=== PATIENT | male | born 1965 | race Hispanic/Latino ===

== ENCOUNTER 2019-07-18 11:32 | Emergency (ER) | payer BC ==
[2019-07-18 12:32] LABS: Basophils % 0.6 % (0-1.3); Hematocrit 46.1 % (39.6-49.0); Lymphocytes % 25.4 % (15.3-44.8); Protime INR 0.97; RBC Red Blood Cell Count 5.17 M/uL (4.33-5.43)
--- NOTE | 2019-07-18 12:50 | RAD REPORT ---
EXAM DESCRIPTION: CT - Head Brain Wo Cont - 07/18/2019 12:24 pm CLINICAL HISTORY: Headache COMPARISON: 2011 TECHNIQUE: Computed axial tomography of the head was obtained. IV contrast was not requested. All CT scans are performed using dose optimization technique as appropriate and may include automated exposure control or mA/KV adjustment according to patient size. FINDINGS: An intracranial bleed is not seen . The ventricles are normal in caliber. No extra-axial fluid collection is noted. Fluid within the sinuses/ mastoids is not seen. IMPRESSION: No acute intracranial abnormality is seen. If patient's symptoms persist MRI of the bra in would be recommended.
--- NOTE | 2019-07-18 13:06 | RAD REPORT ---
EXAM DESCRIPTION: - CP - 07/18/2019 1:00 pm CLINICAL HISTORY: headache, dizziness Headache, drowsiness, TIA COMPARISON: No comparisons TECHNIQUE: Real-time sonographic evaluation of both carotid systems was performed. Doppler interroga tion was performed with waveform tracing bilaterally. FINDINGS: Normal high resistance waveforms are noted in both external carotid arteries. The common c arotid arteries and internal carotid arteries show normal low resistance waveforms. No significant plaque formation is seen. Peak systolic and end diastolic velocity values and the ICA/ CCA ratios are in the non-hemodynamically significant range. Antegrade flow seen in both vertebral arteries. IMPRESSION: No significant atherosclerotic changes noted. No evidence of a hemodynamically significant stenosis.
[2019-07-18] MEDS ORDERED: NA CHLORIDE 0.9% 1,000 ML ONE (13:28)
[2019-07-18 13:38] LABS: BUN Blood Urea Nitrogen 12 mg/dL (7-18); Bicarbonate 25 mmol/L (21-32); Magnesium 2.1 mg/dL (1.8-2.4); Potassium 4.1 mmol/L (3.5-5.1); Sodium Level 136 mmol/L (136-145); Troponin (Emerg Dept Use Only) < 0.02 ng/mL (0.0-0.045)
[2019-07-18 13:39] LABS: Glucose Level 537 mg/dL (74-106)
--- NOTE | 2019-07-18 14:08 | RAD REPORT ---
EXAM DESCRIPTION: MRI - Brain Wo Cont - 07/18/2019 1:57 pm CLINICAL HISTORY: Dizziness;Headache Headache, drowsiness, TIA COMPARISON: Head Brain Wo Cont dated 07/18/2019; Carotid Artery Bilateral dated 07/18/2019 TECHNIQUE: Multi-sequence, multiplanar MR imaging of the brain was performed without contrast. FINDINGS: No intracranial hemorrhage, hydrocephalus or extra-axial fluid collections. No edema or sh ift of midline structures. No findings to suspect brain mass. DWI is negative for acute CVA. Midline structures are normally formed. Mastoid air cells and paranasal sinuses are clear. IMPRESSION: No acute or pathologic intracranial abnormalities.
[2019-07-18] MEDS ORDERED: INSULIN -REGULAR HUMAN 50 UNIT/0.5 ML ML ONE (14:40)
--- NOTE | 2019-07-18 15:08 | ER ---
Nurse's Notes [facility] Name: Tamir Basurto Age: 53 yrs Sex: Male : 1965 Arrival Date: 07/18/2019 Time: 11:33 Bed 17 Private MD: Diagnosis: Dizziness and giddiness;Hyperglycemia, unspecified;Dehydration Presentation: 07/17 11:58 Chief complaint: Patient states: C-SPINE TENDERNESS x1 MONTH, SUBJECTIVE SLURRED SPEECH bp AND DIZZINESS TODAY, NOW RESOLVED. Coronavirus screen: Proceed with normal triage. Ebola Screen: No symptoms or risks identified at this time. Initial Sepsis Screen: Does the patient meet any 2 criteria? HR > 90 bpm. No. Patient's initial sepsis screen is negative. Does the patient have a suspected source of infection? No. Patient's initial sepsis screen is negative. Risk Assessment: Do you want to hurt yourself or someone else? Patient reports no desire to harm self or others. Onset of symptoms is unknown. 11:58 Method Of Arrival: Ambulatory bp 11:58 Acuity: CHARITO 3 bp Triage Assessment: 12:03 General: Appears in no apparent distress. comfortable, Behavior is cooperative, bp appropriate for age, anxious. Pain: Complains of pain in back of neck. EENT: No deficits noted. Neuro: Level of Consciousness is awake, alert, obeys commands, Oriented to person, place, time, situation, Appropriate for age Mammography Technologist are equal bilaterally Moves all extremities. Full function Speech is normal, Reports dizziness. Cardiovascular: No deficits noted. Respiratory: No deficits noted. GI: No signs and/or symptoms were reported involving the gastrointestinal system. : No signs and/or symptoms were reported regarding the genitourinary system. Derm: No deficits noted. Musculoskeletal: No deficits noted. Historical: - Allergies: 12:03 No Known Allergies; bp - Home Meds: 12:03 Metformin Oral [Active]; bp - PMHx: 12:03 Diabetes - NIDDM; Hypertension; bp - Immunization history:: Adult Immunizations up to date. - Social history:: Smoking status: Patient denies any tobacco usage or history of. - Family history:: not pertinent. - Hospitalizations: : No recent hospitalization is reported. Screenin:04 Abuse screen: Denies threats or abuse. Denies injuries from another. Nutritional bp screening: No deficits noted. Tuberculosis screening: No symptoms or risk factors identified. Fall Risk None identified. Assessment: 12:04 General: SEE TRIAGE NOTE. bp 12:20 Reassessment: Pt to CT. ca1 12:48 Reassessment: Patient appears in no apparent distress at this time. Patient and/or ca1 family updated on plan of care and expected duration. Pain level reassessed. Patient is alert, oriented x 3, equal unlabored respirations, skin warm/dry/pink. 12:53 Reassessment: PT RETURNED FROM RADIOLOGY. ALL CURRENT STUDIES IN PROCESS. bp 13:37 Reassessment: PT to MRI. ca1 13:40 Reassessment: CRITICAL LAB: GLUCOSE 537. Notified Dr. Ray. ca1 14:05 Reassessment: PT RETURNED FROM MRI. bp 15:15 Reassessment: PT D/C HOME AMBULATORY, DX WITH DIZZINESS, DEHYDRATION AND HYPERGLYCEMIA. bp Vital Signs: 11:58 BP 115 / 97; Pulse 100; Resp 17; Temp 98.5; Pulse Ox 98% ; Weight 98.88 kg; Height 5 bp ft. 11 in. (180.34 cm); 12:52 BP 128 / 70; Pulse 91; Resp 21; Pulse Ox 97% ; bp 14:02 BP 126 / 88; Pulse 80; Resp 20; Pulse Ox 97% ; bp 15:15 BP 118 / 81; Pulse 72; Resp 16; Pulse Ox 97% ; bp 11:58 Body Mass Index 30.40 (98.88 kg, 180.34 cm) bp ED Course: 11:33 Patient arrived in ED. as 11:49 Eagle Ray MD is Attending Physician. rn 11:52 Marissa Cespedes, GREG is Primary Nurse. ca1 12:00 Triage completed. bp 12:03 Arm band placed on. bp 12:04 Patient has correct armband on for positive identification. Bed in low position. Call bp light in reach. Side rails up X2. 12:18 No provider procedures requiring assistance completed. Initial lab(s) drawn, by co, ca1 sent to lab. Inserted saline lock: 20 gauge in right forearm, using aseptic technique. Blood collected. 12:25 CT Head Brain wo Cont In Process Unspecified. EDMS 12:48 EKG done. ca1 13:00 Carotid Artery Bilateral US In Process Unspecified. EDMS 13:48 MRI - Brain Wo Cont In Process Unspecified. EDMS 13:49 Lyndon Noel, RN is Primary Nurse. bp 15:16 IV discontinued, intact, bleeding controlled, No redness/swelling at site. Pressure bp dressing applied. Administered Medications: 13:25 Drug: NS 0.9% 1000 ml Route: IV; Rate: 1000 ml; Site: right forearm; bp 15:17 Follow up: IV Status: Completed infusion; IV Intake: 1000ml bp 14:30 Drug: Insulin Regular Human 10 units {Co-Signature: ca1 (Marissa Cespedes RN).} Route: bp Sub-Q; Site: right upper arm; 15:15 Follow up: Response: No adverse reaction bp Intake: 15:17 IV: 1000ml; Total: 1000ml. bp Outcome: 15:07 Discharge ordered by . rn 15:16 Discharged to home ambulatory. bp 15:16 Condition: stable 15:16 Discharge instructions given to patient, Instructed on discharge instructions, follow up and referral plans. Demonstrated understanding of instructions, follow-up care. 15:24 Patient left the ED. bp Signatures: Dispatcher [employer] Prieto Roman, MD MD rn Peltier, Brian, RN RN bp Marissa Cespedes RN RN ca1 Marissa Cespedes RN ca1
--- NOTE | 2019-07-18 15:08 | EDPHYS ---
Physician Documentation [facility] Name: Tamir Basurto Age: 53 yrs Sex: Male : 1965 Arrival Date: 07/18/2019 Time: 11:33 Bed 17 Private MD: ED Physician Eagle Ray HPI: 07/17 12:28 This 53 yrs old Male presents to ER via Ambulatory with complaints of rn Dizziness, headache. 12:28 The patient presents with feeling off balance. Onset: The symptoms/episode rn began/occurred. 12:30 Onset: The symptoms/episode began/occurred yesterday. Context:. Modifying factors: The rn symptoms are alleviated by nothing, the symptoms are aggravated by movement of head, standing up. Severity of symptoms: At their worst the symptoms were moderate in the emergency department the symptoms have improved. The patient has not experienced similar symptoms in the past. Reports since yesterday noticed dizziness, feeling off balance, and slight slurred speech, reports 1 month of occipital headache, no trauma. 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 No focal weakness or numbness. Reports still feels like slurred speech is present to mild extent. . Historical: - Allergies: 12:03 No Known Allergies; bp - Home Meds: 12:03 Metformin Oral [Active]; bp - PMHx: 12:03 Diabetes - NIDDM; Hypertension; bp - Immunization history:: Adult Immunizations up to date. - Social history:: Smoking status: Patient denies any tobacco usage or history of. - Family history:: not pertinent. - Hospitalizations: : No recent hospitalization is reported. ROS: 12:50 Constitutional: Negative for fever, chills, and weight loss, Eyes: Negative for injury, rn pain, redness, and discharge, ENT: Negative for injury, pain, and discharge, Neck: Negative for injury, pain, and swelling, Cardiovascular: Negative for chest pain, palpitations, and edema, Respiratory: Negative for shortness of breath, cough, wheezing, and pleuritic chest pain, Abdomen/GI: Negative for abdominal pain, nausea, vomiting, diarrhea, and constipation, MS/Extremity: Negative for injury and deformity, Skin: Negative for injury, rash, and discoloration, Neuro: Negative for weakness, numbness, tingling, and seizure. Exam: 12:48 ECG was reviewed by the Attending Physician. rn 12:50 Constitutional: This is a well developed, well nourished patient who is awake, alert, rn and in no acute distress. Head/Face: Normocephalic, atraumatic. Eyes: Pupils equal round and reactive to light, extra-ocular motions intact. Lids and lashes normal. Conjunctiva and sclera are non-icteric and not injected. Cornea within normal limits. Periorbital areas with no swelling, redness, or edema. Neck: Trachea midline, no thyromegaly or masses palpated, and no cervical lymphadenopathy. Supple, full range of motion without nuchal rigidity, or vertebral point tenderness. No Meningismus. Cardiovascular: Regular rate and rhythm. No pulse deficits. Respiratory: No increased work of breathing, no retractions or nasal flaring. Abdomen/GI: soft, non-tender MS/ Extremity: Pulses equal, no cyanosis. Neurovascular intact. Full, normal range of motion. Equal circumference. Neuro: Awake and alert, GCS 15, oriented to person, place, time, and situation. Cranial nerves II-XII grossly intact. Motor strength 5/5 in all extremities. Sensory grossly intact. Normal coordination with bilateral upper ext. Vital Signs: 11:58 BP 115 / 97; Pulse 100; Resp 17; Temp 98.5; Pulse Ox 98% ; Weight 98.88 kg; Height 5 bp ft. 11 in. (180.34 cm); 12:52 BP 128 / 70; Pulse 91; Resp 21; Pulse Ox 97% ; bp 14:02 BP 126 / 88; Pulse 80; Resp 20; Pulse Ox 97% ; bp 15:15 BP 118 / 81; Pulse 72; Resp 16; Pulse Ox 97% ; bp 11:58 Body Mass Index 30.40 (98.88 kg, 180.34 cm) bp MDM: 11:49 Patient medically screened. rn 15:05 Differential diagnosis: cardiac arrhythmia, CVA, generalized weakness, hypovolemia, rn idiopathic dizziness, TIA, vertigo, hyperglycemia, dehydration. Data reviewed: vital signs, nurses notes, lab test result(s), EKG, radiologic studies, CT scan, MRI, and as a result, I will discharge patient. Counseling: I had a detailed discussion with the patient and/or guardian regarding: the historical points, exam findings, and any diagnostic results supporting the discharge/admit diagnosis, lab results, radiology results, the need for outpatient follow up, to return to the emergency department if symptoms worsen or persist or if there are any questions or concerns that arise at home. Response to treatment: the patient's symptoms have markedly improved after treatment, and as a result, I will discharge patient. Special discussion: I discussed with the patient/guardian in detail that at this point there is no indication for admission to the hospital. It is understood, however, that if the symptoms persist or worsen the patient needs to return immediately for re-evaluation. Based on the history and exam findings, there is no indication for further emergent testing or inpatient evaluation. I discussed with the patient/guardian the need to see the primary care provider for further evaluation of the symptoms. ED course: No acute findings on CT head or MRI brain, normal carotid doppler study, + hyperglycemic without acidosis or AG. Improved after insulin and fluids, will dc home with pcp f/u. States ate just before arrival as well and admits to not paying close attention to diet. . 07/17 12:05 Order name: Basic Metabolic Panel; Complete Time: 13:42 rn 07/17 12:05 Order name: CBC with Diff; Complete Time: 13: rn 07/17 12:05 Order name: Magnesium; Complete Time: 13:42 rn 07/17 12:05 Order name: Protime (+inr); Complete Time: 13:14 rn 07/17 12:05 Order name: Ptt, Activated; Complete Time: 13:07/17 12:05 Order name: Troponin (emerg Dept Use Only); Complete Time: 13:42 07/17 12:05 Order name: CT Head Brain wo Cont; Complete Time: 13:14 rn 07/17 12:05 Order name: EKG; Complete Time: 12:06 07/17 12:05 Order name: Cardiac monitoring; Complete Time: 12:09 07/17 12:05 Order name: Carotid Artery Bilateral US; Complete Time: 13: rn 07/17 13:15 Order name: MRI - Brain Wo Cont; Complete Time: 14:10 07/17 15:17 Order name: Glucose, Ancillary Testing EDMS 07/17 12:05 Order name: EKG - Nurse/Tech; Complete Time: 12:48 rn 07/17 12:05 Order name: IV Saline Lock; Complete Time: 12:18 rn 07/17 12:05 Order name: Labs collected and sent; Complete Time: 12:07/17 12:05 Order name: NPO; Complete Time: :07/17 12:05 Order name: O2 Per Protocol; Complete Time: 07/17 12:05 Order name: O2 Sat Monitoring; Complete Time: 12: EC:48 Rate is 76 beats/min. Rhythm is regular. QRS [place] is Normal. [place] interval is normal. QRS rn interval is normal. QT interval is normal. No Q waves. T waves are Normal. No ST changes noted. Clinical impression: Normal ECG. Interpreted by me. Reviewed by me. Administered Medications: 13:25 Drug: NS 0.9% 1000 ml Route: IV; Rate: 1000 ml; Site: right forearm; bp 15:17 Follow up: IV Status: Completed infusion; IV Intake: 1000ml bp 14:30 Drug: Insulin Regular Human 10 units {Co-Signature: ca1 (Marissa Cespedes RN).} Route: bp Sub-Q; Site: right upper arm; 15:15 Follow up: Response: No adverse reaction bp Disposition: 07/18/19 15:07 Discharged to Home. Impression: Dizziness and giddiness, Hyperglycemia, unspecified, Dehydration. - Condition is Stable. - Discharge Instructions: Dehydration, Adult, Dizziness, Hyperglycemia, Blood Glucose Monitoring, Adult. - Medication Reconciliation Form, Thank You Letter, Antibiotic Education, Prescription Opioid Use form. - Follow up: Private Physician; When: As needed; Reason: Recheck today's complaints, Re-evaluation by your physician. - Problem is new. - Symptoms have improved. Signatures: Dispatcher [employer] EDMS Eagle Ray MD MD rn Peltier, Brian RN RN bp Marissa Cespedes RN ca1 Corrections: (The following items were deleted from the chart) 15:24 15:07 07/18/2019 15:07 Discharged to Home. Impression: Dizziness and giddiness; bp Hyperglycemia, unspecified; Dehydration. Condition is Stable. Forms are Medication Reconciliation Form, Thank You Letter, Antibiotic Education, Prescription Opioid Use. Follow up: Private Physician; When: As needed; Reason: Recheck today's complaints, Re-evaluation by your physician. Problem is new. Symptoms have improved. rn
[2019-07-18 15:30] VITALS: TEMP 98.5
[2019-07-18 15:32] VITALS: O2SAT 97
[2019-07-18 15:35] VITALS: BP 118/81
--- NOTE | 2019-07-18 20:11 | EKG ---
Test Date: 2019-07-18 Test Time: 12:48:23 P D Driver: EBENEZER MEASUREMENT RESULTS: Intervals: Rate: 76 IN: 126 QRSD: 86 QT: 366 QTc: 411 Leopold: P: 62 IN: 126 QRS: 42 T: 33 INTERPRETIVE STATEMENTS: Normal sinus rhythm Normal ECG No previous ECG available for comparison Electronically Signed On 07-18-19 20:10:54 CDT by Jluis Sparks
== END 2019-07-18 15:24 | disposition home or self-care (01) ==
LOC: ER 11:32
DX: E11.65 Type 2 diabetes mellitus with hyperglycemia (principal); E86.0 Dehydration
CPT/HCPCS: 96361; 93005; 85025; 80048; 36415; 83735; 85610; 82947; 85730; 84484; 70450; 93880; 70551; 96360; 96372; 99284; J7030